=== PATIENT | female | born 1985 | race Caucasian/White ===

== ENCOUNTER 2019-09-08 15:43 | Emergency (ER) | payer MEDICAID ==
[~2019-09-08] VITALS: Ht 165.1 cm; Wt 62.6 kg
[2019-09-08 16:43] VITALS: BP_SYST 116
--- NOTE | 2019-09-08 16:51 | NUR ---
Patient triaged and placed in waiting room. VSS and patient appears in no acute distress at this time. Accompanied by children, awaiting available bed, and MD notified of need for MSE.
--- NOTE | 2019-09-08 20:00 | NUR ---
Patient to ER [facility] to gown for evaluation. Side rails up.
--- NOTE | 2019-09-08 20:01 | NUR ---
Patient complains of fever, cough and body aches x 3 days. Pt denies N/V or diarrhea. NO other injuries/complaints per patient or noted.
--- NOTE | 2019-09-08 20:02 | NUR ---
ER JONNY Ovalles at bedside examining patient.
[2019-09-08 20:10] VITALS: BP_SYST 125
--- NOTE | 2019-09-08 20:10 | NUR ---
Patient given written and verbal discharge instructions and verbalizes understanding. ER MD discussed with patient the results and treatment provided. Patient in stable condition. ID arm band removed. Rx of Promethazine, Motrin, Azithromycin and Tamiflu given. Patient educated on pain management and to follow up with PMD. Pain Scale 0. Opportunity for questions provided and answered. Medication side effect fact sheet provided.
== END 2019-09-08 20:10 | disposition home or self-care (01) ==
LOC: SED 15:43
DX: J11.1 Influenza due to unidentified influenza virus with other respiratory manifestations (principal)
CPT/HCPCS: 36415; 86710; 99283